=== PATIENT | female | born 1995 | race Caucasian/White ===

== ENCOUNTER → 2019-06-03 | Outpatient (CLI) | payer BC, MEDICAID ==
[~2019-06-03] MED LIST: BIRTH CONTROL PO; CEPHALEXIN500 M2 PO
== END ==
LOC: RAD 08:00
DX: R10.11 Right upper quadrant pain (principal); R19.7 Diarrhea, unspecified

== ENCOUNTER → 2020-06-11 | Outpatient (CLI) | payer MEDICAID ==
[2020-06-11 08:32] LABS: URINE APPEARANCE CLEAR; URINE BILIRUBIN NEGATIVE (NEGATIVE); URINE BLOOD NEGATIVE (NEGATIVE); URINE COLOR YELLOW; URINE GLUCOSE NEGATIVE (NEGATIVE); URINE KETONE NEGATIVE (NEGATIVE); URINE LEUKOCYTE ESTERASE NEGATIVE (NEGATIVE); URINE NITRATE NEGATIVE (NEGATIVE); URINE PROTEIN(semi-quant) TRACE mg/dL (NEGATIVE); URINE UROBILINOGEN NORMAL (NORMAL); URINE WBC 0-1 /hpf (0-3)
== END ==
LOC: LAB 08:10
PROVIDERS: Nurse Practitioner
DX: R30.9 Painful micturition, unspecified (principal)

== ENCOUNTER → 2021-10-11 | Outpatient (CLI) | payer OTHER, MEDICAID ==
[2021-10-11 21:07] LABS: CLUE CELLS NOT OBSERVED (Not Observd)
== END ==
LOC: LAB 19:56
PROVIDERS: Nurse Practitioner Family
DX: Z20.2 Contact with and (suspected) exposure to infections with a predominantly sexual mode of transmission (principal)
CPT/HCPCS: Q0111